=== PATIENT | female | born 1995 | race Caucasian/White ===

== ENCOUNTER → 2017-03-31 12:10 | Emergency (ER) | END | disposition left against medical advice (07) | LOC: UCCORT 12:10 | DX: J02.9 Acute pharyngitis, unspecified (principal); Z53.21 Procedure and treatment not carried out due to patient leaving prior to being seen by health care provider ==

== ENCOUNTER 2017-03-31 16:39 | Emergency (ER) | payer OTHER ==
[2017-03-31 18:58] VITALS: BP 135/84
--- NOTE | 2017-03-31 19:24 | UC ---
Throat Pain/Nasal Tee HPI - HPI Summary HPI Summary: Pt c/o sore thraot and swollen, tender tonsils X 10 days. Pt began taking amoxicillin that she had at home for 2 days then she began a z-kimmie 3 days ago and reports that tonsil swelling and sore throat have not improved. Pt denies difficulty breathing. - History of Current Complaint Chief Complaint: UCGeneralIllness Stated Complaint: THROAT COMPLAINT Time Seen by Provider: 03/31/17 18:53 Hx Obtained From: Patient Hx Last Menstrual Period: 03/30/17 ?: No Onset/Duration: Gradual Onset, Lasting Days - 10 Severity: Moderate Cough: None Associated Signs & Symptoms: Positive: Dysphagia Related History: Other (Noted In Comments) - history of tonisillitis - Epiglottits Risk Factors Epiglottis Risk Factors: Negative - Allergies/Home Medications Allergies/Adverse Reactions: Allergies Allergy/AdvReac Type Severity Reaction Status Date / Time No Known Allergies Allergy Verified 03/31/17 18:51 PMH/Surg Hx/FS Hx/Imm Hx Previously Healthy: Yes - Surgical History Surgical History: None Surgery Procedure, Year, and Place: denies - Family History Known Family History: Positive: Cardiac Disease - Social History Occupation: Student Lives: Dormitory/Roommates - [employer] Alcohol Use: Occasionally Substance Use Type: None Smoking Status (MU): Never Smoked Tobacco Have You Smoked in the Last Year: No Review of Systems Constitutional: Chills, Fatigue Skin: Negative Eyes: Negative ENT: Sore Throat Respiratory: Negative Cardiovascular: Negative Gastrointestinal: Negative Genitourinary: Negative Motor: Negative Neurovascular: Negative Musculoskeletal: Negative Neurological: Negative Psychological: Negative Is Patient Immunocompromised?: No All Other Systems Reviewed And Are Negative: Yes Physical Exam Triage Information Reviewed: Yes Appearance: Ill-Appearing Vital Signs: Initial Vital Signs Temp 99.5 F 03/31/17 18:53 Pulse 97 03/31/17 18:53 Resp 14 03/31/17 18:53 BP 135/84 03/31/17 18:53 Vital Signs Reviewed: Yes Eye Exam: Normal ENT Exam: Other ENT: Positive: Tonsillar swelling - right tonsil > left tonsil. Dental Exam: Normal Neck exam: Normal Respiratory Exam: Normal Cardiovascular Exam: Normal Musculoskeletal Exam: Normal Neurological Exam: Normal Psychological Exam: Normal Skin Exam: Normal Throat Pain/Nasal Course/Dx - Course Assessment/Plan: I explained to the pt that we were testing her for mono and to discontinue taking antibiotics. Pt's rapid strep was negative. - Differential Dx/Diagnosis Differential Diagnosis/HQI/PQRI: Mononucleosis, Tonsillitis Provider Diagnoses: tonsillitis Discharge - Discharge Plan Condition: Stable Disposition: HOME Prescriptions: Ibuprofen TAB* [Motrin TAB* 800 MG] 800 mg PO Q8H #21 tab methylPREDNISolone TAB* [Medrol TAB*] 4 - 8 mg PO .SEE KIMMIE #1 kimmie Patient Education Materials: Tonsillitis (ED) Referrals: [facility] [place] [facility] REFERRAL [Outside] Non Staff,Doctor [Primary Care Provider] - If Needed
[2017-04-01 12:13] LABS: Hematocrit 40 % (35-47); Hemoglobin 13.2 g/dl (12.0-16.0); Mean Corpuscular HGB Conc 33 g/dl (31-36); Mean Corpuscular Hemoglobin 32 pg (27-31); Mean Corpuscular Volume 97 fL (80-97); Mean Platelet Volume 10 um3 (7.4-10.4); Red Cell Distribution Width 13 % (10.5-15); White Blood Count 12.6 10^3/ul (3.5-10.8)
[2017-04-01 12:32] LABS: Mono Internal Control QC Line Present
[2017-04-01 12:33] LABS: Manual Entry Verification JEA0012
--- NOTE | 2017-04-02 07:20 | UC ---
Progress - Progress Note Progress Note: please call the pt. with the lab results + Taliaferro, Cont. with rest, fluid, Prednisone no contact sports for 6 weeks follow up with her pcp in 1 week if not better
== END 2017-03-31 19:47 | disposition home or self-care (01) ==
LOC: UCCORT 16:39
DX: J03.90 Acute tonsillitis, unspecified (principal)
CPT/HCPCS: 36415; 85025; 86308; 87651; 99212; G0463